=== PATIENT | female | born 1995 | race Caucasian/White ===

== ENCOUNTER 2017-08-07 18:44 | Emergency (ER) | payer OTHER ==
[~2017-08-07] VITALS: Ht 162.6 cm; Wt 48.5 kg
[2017-08-07 18:53] VITALS: BP 131/93; TEMP 99
[2017-08-07] MEDS ORDERED: DOXYCYCLINE 10100 MG PO (20:43)
[2017-08-07 20:55] VITALS: PULSE 89
== END 2017-08-07 20:50 | disposition home or self-care (01) ==
LOC: COL.ER 18:44
DX: J20.9 Acute bronchitis, unspecified (principal)